=== PATIENT | female | born 1960 | race Caucasian/White ===

== ENCOUNTER → 2020-03-11 08:47 | Outpatient (BNVA) | payer BC, SELFPAY | PROVIDERS: Family Provider Family Medicine; Referring Provider Nurse Practitioner Family; Visit Provider Podiatrist Foot & Ankle Surgery | DX: M25.571 Pain in right ankle and joints of right foot (principal) | CPT/HCPCS: 73610 ==

== ENCOUNTER 2020-03-24 14:47 | Outpatient (CLI) | payer BC, SELFPAY ==
--- NOTE | 2020-03-24 15:15 | MRR_ITS ---
PROCEDURE INFORMATION: Exam: MR Right Lower Extremity Joint Without Contrast; Ankle Exam date and time: 03/24/2020 3:15 PM Age: 59 years old Clinical indication: Injury or trauma; Injury history: Board fell on calf/ankle; Initial encounter; Blunt trauma; Lower leg and ankle; Injury date: 12/26/2019; Injury details: Patient states a piece of plywood fell and struck her calf and scraped down leg to right ankle TECHNIQUE: Imaging protocol: MR of the Right lower extremity without contrast. Exam focused on the ankle. COMPARISON: CR XR ankle RT min 3V* [id number] 03/11/2020 8:52 AM FINDINGS: Bones and cartilage: No bone marrow edema or fracture. No talar osteochondral lesions. Joint spaces: No joint effusion. LIGAMENTS: Distal tibiofibular syndesmosis: Unremarkable. No tear. Anterior talofibular ligament: Unremarkable. No tear. Posterior talofibular ligament: Unremarkable. No tear. Calcaneofibular ligament: Unremarkable. No tear. Deltoid ligament complex: Unremarkable. No tear. TENDONS: Flexor tendons of foot: Unremarkable as visualized. Tibialis posterior tendon: Unremarkable as visualized. Peroneal tendons: Unremarkable as visualized. Extensor tendons of foot: Unremarkable as visualized. Tibialis anterior tendon: Unremarkable as visualized. Achilles tendon: Unremarkable as visualized. Tarsal canal (Sinus tarsi): Unremarkable. Normal signal of the fat. Tarsal tunnel: Unremarkable. Muscles: Unremarkable. Soft tissues: Lateral subcutaneous edema/inflammation. No focal fluid collection. Plantar fascia: Plantar fascia is unremarkable. MR/MR ankle RT wo con* [id number] IMPRESSION: Subcutaneous edema.
== END 2020-03-24 14:48 | disposition home or self-care (01) ==
LOC: RADSHAW 14:51
PROVIDERS: PCP Family Medicine; Visit Provider Podiatrist Foot & Ankle Surgery
DX: S89.81XA Other specified injuries of right lower leg, initial encounter (principal); X58.XXXA Exposure to other specified factors, initial encounter; R60.0 Localized edema
CPT/HCPCS: 73721

== ENCOUNTER 2020-09-13 12:58 | Outpatient (CLI) | payer BC, SELFPAY ==
--- NOTE | 2020-09-13 13:07 | XRR_ITS ---
PROCEDURE INFORMATION: Exam: XR Lumbosacral Spine, 2 or 3 Views Exam date and time: 09/13/2020 1:21 PM Age: 60 years old Clinical indication: Low back pain; Additional info: Low back pain x 2 months TECHNIQUE: Imaging protocol: XR of the lumbosacral spine, 2 or 3 views. COMPARISON: No relevant prior studies available. FINDINGS: Bones/joints: Normal. No acute fracture. There is dorsolumbar spine dextroscoliosis Soft tissues: Unremarkable. XR/XR lumbar spine 2-3V* [id number] IMPRESSION: 1. Dorsolumbar spine dextroscoliosis 2. Otherwise No acute bone abnormality.
== END 2020-09-13 12:59 | disposition home or self-care (01) ==
PROVIDERS: PCP Family Medicine; Visit Provider Nurse Practitioner
DX: M54.5 Low back pain (principal); M41.86 Other forms of scoliosis, lumbar region
CPT/HCPCS: 72100

== ENCOUNTER 2020-10-29 13:21 | Outpatient (CLI) | payer BC, SELFPAY ==
--- NOTE | 2020-10-29 13:23 | MR_ITS ---
WS: [id number] MRI LUMBAR SPINE NONCONTRAST HISTORY: LOW BACK PAIN COMPARISON: None available. TECHNIQUE: Sagittal and axial multisequence imaging is submitted. Straightening of the normal cervical lordosis with focal kyphosis in the lower cervical spine. S-shaped curvature thoracolumbar spine. Reactive marrow edema along the L2-3 and L4-5 endplates. No f ractures. Moderate degenerative disc disease throughout the lumbar spine. Most significant at L2-3 and L4-5. Conus terminates normally at L1-2 disc level. L1-L2: Mild facet arthritis. No stenosis. L2-L3: Diffuse annular disc bulging is slightly asymmetric to the LEFT. Asymmetric facet joint arthri tis greatest on the LEFT. Moderate LEFT subarticular recess stenosis. L3-L4: Diffuse annular disc bulging and osteophytic ridging with moderate facet and ligamentum flavum hypertrophy. 8mm facet joint cyst on the LEFT extends posterior. Mild bilateral foraminal narrowing. L4-L5: Diffuse annular disc bulging and mild osteophytic ridging. Moderate facet and ligamentum flavu m hypertrophy. Small amount of fluid in the facet joints bilaterally. Very mild central and RIGHT for aminal stenosis. L5-S1: Focal central disc protrusion with mild annular disc bulging. No significant stenosis. MR/MR lumbar spine wo con* [id number] IMPRESSION: 1. S-shaped degenerative scoliosis thoracolumbar spine. 2. Degenerative disc disease at L2-3 and L4-5. 3. Moderate LEFT subarticular recess stenosis at L2-3. 4. Mild bilateral foraminal stenosis at L3-4. 5. Mild central and RIGHT foraminal stenosis at L4-5.
== END 2020-10-29 13:22 | disposition home or self-care (01) ==
LOC: RADSHAW 13:22
PROVIDERS: PCP Family Medicine; Visit Provider Nurse Practitioner
DX: M48.061 Spinal stenosis, lumbar region without neurogenic claudication (principal); M51.36 Other intervertebral disc degeneration, lumbar region; M41.85 Other forms of scoliosis, thoracolumbar region
CPT/HCPCS: 72148

== ENCOUNTER 2022-01-06 09:37 | Outpatient (CLI) | payer BC, SELFPAY ==
--- NOTE | 2022-01-06 09:50 | MM_ITS ---
WS: [id number] BILATERAL SCREENING DIGITAL BREAST TOMOSYNTHESIS MAMMOGRAM WITH CAD HISTORY: SCREENING COMPARISON: 12/08/2013 Bilateral CC and MLO views with tomosynthesis and synthetic mammography submitted. Computer aided det ection analyzed. Breast composition: The breasts are heterogeneously dense, which may obscure small masses. No suspici ous masses, microcalcifications or architectural distortion. Benign calcifications in each breast. MM/[place] [id number] IMPRESSION: BI-RADS: 2-Benign FOLLOW UP: 1 Year Follow-up
== END 2022-01-06 09:38 | disposition home or self-care (01) ==
PROVIDERS: PCP Family Medicine; Visit Provider Nurse Practitioner
DX: Z12.31 Encounter for screening mammogram for malignant neoplasm of breast (principal); R92.1 Mammographic calcification found on diagnostic imaging of breast
CPT/HCPCS: 77063; 77067